=== PATIENT | female | born 1955 | race Caucasian/White ===

== ENCOUNTER 2022-04-24 19:01 | Emergency (ER) | payer MEDICARE, SELFPAY ==
--- NOTE | ~2022-04-24 | CT_ITS ---
EXAMINATION: CT facial bones wo con DATE: 04/25/2022 00:05 INDICATION: Nose injury. TECHNIQUE: Computed tomography (CT) of the facial bones and maxillofacial region was performed withou t intravenous contrast. Automated exposure control and iterative reconstruction technique were employ ed. The dose-length product was 479.50 mGy-cm. COMPARISON: None. FINDINGS: There are likely changes of left ocular lens replacement surgery. There is soft tissue swel ling of the nose. There are fractures of the nasal bones and nasal processes of maxilla. There is muc osal thickening in the paranasal sinuses. There is severe cervical spondylosis. IMPRESSION: 1. Fractures of the nasal bones and nasal processes of maxilla. Reviewed, dictated and finalized at location A.
[2022-04-24 19:19] VITALS: BP 155/87; PULSE 90; RESP 18; TEMP 36.7; O2SAT 99
--- NOTE | 2022-04-24 23:46 | ED.FALL ---
HPI - Fall General Chief Complaint: Fall <ROSALIO Griffin Last Filed: 04/25/22 01:15> Stated Complaint: fall, nose injury <ROSALIO Griffin Last Filed: 04/25/22 01:15> Time Seen by Provider: 04/24/22 23:37 <ROSALIO Griffin Last Filed: 04/25/22 01:15> History of Present Illness HPI Narrative: Patient is a 64-year-old female here for evaluation of nose pain. Patient states that she was walking to the grocery store when she accidentally hit the front of her face against the glass door. She denies loss of consciousness or injury anywhere else on her head. Did not fall down after the accident. Currently complaining of pain around her nose, but denies any pain with extraocular movements, diplopia, changes to her vision, headaches. <ROSALIO Griffin Last Filed: 04/25/22 01:15> Related Data Home Medications: Home Medications Medication Instructions Recorded Confirmed alendronate 70 mg tablet tablet PO 04/24/22 atorvastatin 20 mg tablet tablet 04/24/22 estradiol 0.01% (0.1 mg/gram) applic vaginal 04/24/22 vaginal cream <ROSALIO Griffin Last Filed: 04/25/22 01:15> Allergies/Adverse Reactions: Allergies Allergy/AdvReac Type Severity Reaction Status Date / Time erythromycin base Allergy DIARRHEA Verified 04/24/22 19:22 Penicillins Allergy YEAST Verified 04/24/22 19:22 <ROSALIO Griffin Last Filed: 04/25/22 01:15> Review of Systems Review of Systems: Gen.: Denies fevers or chills Eyes: Denies eye pain or visual change ENT: Denies congestion Respiratory: Denies shortness of breath or cough CV: Denies chest pain or palpitations GI: Denies abdominal pain nausea, emesis or diarrhea denies burning, urgency, frequency or hematuria Musculoskeletal: Reports nasal pain Neuro: Denies numbness, tingling, weakness or focal weakness Skin: Denies rash Except as documented, all other systems reviewed and negative <Fara Beltran PA-C - Last Filed: 04/25/22 01:15> Exam Narrative: APPEARANCE: Well appearing, no pain in distress, well-nourished. Head: Swelling over nasal bones EYES: No pains with extraocular movement. PERRLA/EOMI, conjunctivae clear NOSE: No septal hematoma. Moderate amount of swelling over nose. No obvious deformity or dislocation of nasal bones. EARS: External ear normal in appearance THROAT: Oropharynx is clear. Mucous membranes are moist. NECK: Supple. No adenopathy, no masses. RESPIRATORY: Airway patent, respirations nonlabored. Clear to auscultation bilaterally, no rales, rhonchi, wheezing. CARDIOVASCULAR: Regular rate and rhythm without murmurs, rubs, or gallops. ABDOMINAL: Normoactive bowel sounds. Soft, nontender, nondistended. No rebound tenderness or guarding. MUSCULOSKELETAL: Tender to palpation over nose. extremities are warm and well-perfused. Moves all extremities well. No edema. NEURO: Normal speech. No focal neurologic deficits. SKIN: Ecchymosis under right orbit and over the eyelid of the right orbit. PSYCHIATRIC: Normal affect/mood. <Fara Beltran PA-C - Last Filed: 04/25/22 01:15> Course AUTOMATIC CHIEF/PA Physician Supervision For this patient encounter, I reviewed the AUTOMATIC CHIEF or PA documentation, treatment plan, and medical decision making <Aguilar Abdi MD - Last Filed: 04/25/22 05:25> Vital Signs Vital signs: Vital Signs Temperature 98.1 F 04/24/22 19:19 Pulse Rate 90 04/24/22 19:19 Respiratory Rate 18 04/24/22 19:19 Blood Pressure 155/87 H 04/24/22 19:19 Pulse Oximetry 99 04/24/22 19:19 Oxygen Delivery Room Air 04/24/22 19:19 Temperature 98.1 F 04/24/22 19:19 Pulse Rate 78 04/25/22 01:40 Respiratory Rate 16 04/25/22 01:40 Blood Pressure 134/72 04/25/22 01:40 Pulse Oximetry 98 04/25/22 01:40 Oxygen Delivery Room Air 04/24/22 19:19 <Fara Beltran PA-C - Last Filed: 04/25/22 01:15> V
[2022-04-25] MEDS: ACETAMINOPHEN 500 MG TABLET 1000 MG PO (00:24)
[2022-04-25 01:40] VITALS: BP 134/72; PULSE 78; RESP 16; O2SAT 98
== END 2022-04-25 01:47 | disposition home or self-care (01) ==
LOC: ANHED 04-25 01:23
PROVIDERS: Emergency Provider Emergency Medicine
DX: S02.2XXA Fracture of nasal bones, initial encounter for closed fracture (principal); W22.8XXA Striking against or struck by other objects, initial encounter
CPT/HCPCS: 70486; 99284; A9270

== ENCOUNTER 2022-11-05 10:29 | Emergency (ER) | payer MEDICARE, SELFPAY ==
[2022-11-05 10:40] VITALS: BP 144/79; PULSE 75; RESP 16; TEMP 36.7; O2SAT 99
--- NOTE | 2022-11-05 10:56 | ED.SKABFB ---
HPI - Skin/Abscess/Foreign Bdy General Chief complaint: Skin/Abscess/Foreign Body Stated complaint: Irritation on Back of Neck Time Seen by Provider: 11/05/22 10:56 Source: patient, RN notes reviewed and old records reviewed Mode of arrival: ambulatory Limitations: no limitations History of Present Illness HPI narrative: 67-year-old female presents to the [facility] with redness, swelling noted back neck PI states started or Saturday. No treatment prior to arrival. Patient states that she wears her CPAP in the mask rubs at the area. Denies any fevers. No tenderness of the neck that is new. Onset (ago): day(s) (3-4) Related Data Home Medications Medication Instructions Recorded Confirmed atorvastatin 20 mg tablet 1 tablet PO DAILY 04/24/22 11/05/22 Allergies Allergy/AdvReac Type Severity Reaction Status Date / Time erythromycin base Allergy DIARRHEA Verified 11/05/22 10:32 Penicillins Allergy YEAST Verified 11/05/22 10:32 Review of Systems Review of Systems: All systems reviewed & are unremarkable except as noted in HPI and below Constitutional: Constitutional: Reports no additional constitutional complaints Eyes: Eyes: Reports no additional eye complaints ENT: Reports system reviewed and no additional complaints, except as documented Cardiovascular: Cardiovascular: Reports no additional cardiovascular complaints, Denies chest pain and Denies dyspnea Respiratory: Respiratory: Reports no additional respiratory complaints, Denies chest congestion, Denies cough and Denies dyspnea Gastrointestinal: Gastrointestinal: Reports no additional gastrointestinal complaints, Denies abdominal pain, Denies nausea and Denies vomiting Musculoskeletal: Musculoskeletal: Reports no additional musculoskeletal complaints Integumentary/Breasts: Skin/Breast: Reports as per HPI and Reports erythema (Posterior upper neck) Neurologic: Reports system reviewed and no additional complaints, except as documented Psychiatric: Psychiatric: Reports no additional psychiatric complaints Allergic/Immunologic: Allergic/Immunologic: Reports no additional allergic/immunologic complaints [facility] Past Medical History Medical History (Updated 11/05/22 @ 19:19 by Letha Hawkins APRN) High cholesterol Comments At the time of my signature, I reviewed and agree with the nursing past medical, surgical, social, and family history. There is no relevant family history pertinent to the patient complaint. Exam Const: General: cooperative, healthy appearing, comfortable, no acute distress, well developed, alert and well nourished Nutritional Appearance: well nourished Orientation/consciousness: patient oriented x3 Limitations: no limitations HENMT: Head: normal to inspection Ears: hearing grossly normal bilaterally and external ears normal Face/Nose/Sinus: Normal external nose present, Normal nares present, Normal nasal mucous membranes and turbinates present and normal facial exam Face and sinus: normal facial exam Mouth: Yes Normal oral and palatal mucosa present, Yes lip normal and Yes moist mucous membranes Eyes: General: appearance normal, both eyes and all related structures Alignment and Position: alignment normal Periorbital: periorbital findings normal Conjunctivae: conjunctivae normal Pupils: Equal, round and reactive pupils present EOM: EOMs intact bilaterally Neck: Neck: normal visual inspection, full ROM, no lymphadenopathy and no meningeal signs Chest: Chest palpation & inspection: normal inspection of the chest Resp: Effort & Inspection: normal respiratory effort and able to speak in complete sentences Auscultation: clear to auscultation bilaterally, no crackles, no rales, no rhonchi and no wheezes Cardio: Rate: regular rate Rhythm: regular rhythm Back/Spine/Pelvis: Cervical Spine: cervical ROM normal Thoracic/Lumbar Spine: No thoracic spinal tenderness Skin: General skin exam: normal color and no rashes or lesions
== END 2022-11-05 11:12 | disposition home or self-care (01) ==
PROVIDERS: Emergency Provider Nurse Practitioner
DX: L03.221 Cellulitis of neck (principal); E78.00 Pure hypercholesterolemia, unspecified
CPT/HCPCS: 99213; G0463

== ENCOUNTER 2024-07-23 10:29 | Emergency (ER) | payer MEDICARE, SELFPAY ==
[2024-07-23 10:37] VITALS: BP 144/76; PULSE 74; RESP 19; TEMP 36.8; O2SAT 97
--- NOTE | 2024-07-23 10:49 | ED.URI ---
HPI - URI/Sore Throat General Chief Complaint: Upper Respiratory Infection Stated Complaint: Sinus Time Seen by Provider: 07/23/24 10:49 Source: patient, RN notes reviewed and old records reviewed Mode of arrival: ambulatory Limitations: no limitations History of Present Illness HPI Narrative: 69-year-old female presents to the [facility] with complaints of sinus congestion for 6-7 days. Has tried [id number] products. Also reports a cough. Symptoms started on the 13th after getting her flu and COVID vaccine on the 6th. Reports negative COVID test at Treatments prior to arrival: cold medicine Related Data Home Medications Medication Instructions Recorded Confirmed atorvastatin 20 mg tablet 1 tablet PO DAILY 04/24/22 07/23/24 estradiol 0.01% (0.1 mg/gram) vaginal 07/23/24 vaginal cream Allergies Allergy/AdvReac Type Severity Reaction Status Date / Time erythromycin base Allergy DIARRHEA Verified 07/23/24 10:31 Penicillins Allergy YEAST Verified 07/23/24 10:31 Review of Systems Review of Systems: All systems reviewed & are unremarkable except as noted in HPI and below Constitutional: Constitutional: Reports no additional constitutional complaints Eyes: Eyes: Reports no additional eye complaints ENT: Reports as per HPI Cardiovascular: Cardiovascular: Reports no additional cardiovascular complaints, Denies chest pain and Denies dyspnea Respiratory: Respiratory: Reports as per HPI, Denies chest congestion, Reports cough and Denies dyspnea Gastrointestinal: Gastrointestinal: Reports no additional gastrointestinal complaints, Denies abdominal pain, Denies nausea and Denies vomiting Musculoskeletal: Musculoskeletal: Reports no additional musculoskeletal complaints Integumentary/Breasts: Skin/Breast: Reports system reviewed and no additional complaints, except as docu Neurologic: Reports system reviewed and no additional complaints, except as documented Psychiatric: Psychiatric: Reports no additional psychiatric complaints Allergic/Immunologic: Allergic/Immunologic: Reports no additional allergic/immunologic complaints [facility] Past Medical History Medical History High cholesterol Comments At the time of my signature, I reviewed and agree with the nursing past medical, surgical, social, and family history. There is no relevant family history pertinent to the patient complaint. Exam Const: General: cooperative, healthy appearing, comfortable, no acute distress, well developed, alert and well nourished Nutritional Appearance: well nourished Orientation/consciousness: patient oriented x3 Limitations: no limitations HENMT: Head: normal to inspection Ears: hearing grossly normal bilaterally, external ears normal, TM's normal bilaterally, EAC's normal, mastoids normal and no periauricular adenopathy Face/Nose/Sinus: Normal external nose present, Normal nares present, Normal nasal mucous membranes and turbinates present, Nasal discharge present clear bilateral, normal facial exam, face symmetric, No ecchymosis and No erythema Face and sinus: normal facial exam and face symmetric Mouth: Yes Normal oral and palatal mucosa present, Yes lip normal and Yes tongue normal Throat: uvula midline, postnasal drainage and no uvular edema Eyes: General: appearance normal, both eyes and all related structures Alignment and Position: alignment normal Periorbital: periorbital findings normal Neck: Neck: normal visual inspection, full ROM, no lymphadenopathy and no meningeal signs Chest: Chest palpation & inspection: normal inspection of the chest Resp: Effort & Inspection: normal respiratory effort and able to speak in complete sentences Auscultation: clear to auscultation bilaterally, no crackles, no rales, no rhonchi and no wheezes Cardio: Rate: regular rate Rhythm: regular rhythm Skin: General skin exam: normal color and no rashes or lesions noted Lesio
== END 2024-07-23 11:15 | disposition home or self-care (01) ==
PROVIDERS: Emergency Provider Nurse Practitioner
DX: J32.9 Chronic sinusitis, unspecified (principal); R09.82 Postnasal drip; E78.00 Pure hypercholesterolemia, unspecified
CPT/HCPCS: 99213; G0463